=== PATIENT | female | born 1965 | race Caucasian/White ===

== ENCOUNTER 2019-03-01 13:54 | Emergency (ER) | payer SELFPAY ==
[2019-03-01] MEDS ORDERED: ALBUTEROL 2.5 MG/3 ML NEB SOL ONE (14:29)
[2019-03-01] MEDS ORDERED: IPRATROPIUM BROM 0.5MG/2.5ML ONE (14:29)
[2019-03-01] MEDS ORDERED: Magnesium Sulfate 2gm IVPB 2 G/50 ML BAG IV ONE (14:29)
[2019-03-01] MEDS ORDERED: NA CHLORIDE 0.9% 1,000 ML ONE (14:29)
[2019-03-01] MEDS ORDERED: METHYLPREDNISOLONE 125 MG INJ ONE (14:44)
[2019-03-01 14:49] LABS: Absolute Lymphocytes (CBC) 0.9 K/uL (0.7-4.9); Basophils % 0.2 % (0-1.3); Hematocrit 38.6 % (36.0-45.0); Lymphocytes % 23.9 % (15.3-44.8); MPV 9.5 fL (7.6-11.3); RBC Red Blood Cell Count 4.44 M/uL (3.86-4.86)
--- NOTE | 2019-03-01 15:20 | RAD REPORT ---
EXAM DESCRIPTION: RAD - Chest Pa And Lat (2 Views) - 03/01/2019 3:13 pm CLINICAL HISTORY: Dyspnea, persistent cough COMPARISON: None. TECHNIQUE: PA and lateral views of the chest were obtained. FINDINGS: The lungs are clear. Lung markings are not outside of normal range. Heart size is normal and central vasculature is within normal limits. No pleural effusion or pneumothorax seen. No acute bony finding noted. No aortic abnormality. IMPRESSION: No acute cardiopulmonary process.
--- NOTE | 2019-03-01 15:45 | EDPHYS ---
Physician Documentation [facility] Name: Nadia Watson Age: 53 yrs Sex: Female : 1965 Arrival Date: 03/01/2019 Time: 14:01 Bed 18 Private MD: Unknown, Unknown ED Physician Oscar Cid HPI: 03/01 15:27 This 53 yrs old Female presents to ER via Wheelchair with complaints of kb Breathing Difficulty. 15:27 The patient has shortness of breath at rest. Onset: The symptoms/episode began/occurred kb 1 week(s) ago. Duration: The symptoms are continuous. The patient's shortness of breath is aggravated by nothing, is alleviated by nothing. Associated signs and symptoms: Pertinent positives: non-productive cough. Severity of symptoms: At their worst the symptoms were moderate in the emergency department the symptoms are unchanged. The patient has not experienced similar symptoms in the past. The patient has not recently seen a physician. Pt reports she has been sick for about a week with cough, congestion and shortness of breath. [place] the beach today to sweat it out and the shortness of breath got worse. Reports she smokes, but has never been diagnosed with asthma or COPD. Historical: - Allergies: 14:00 No Known Allergies; la1 - Home Meds: 14:00 None [Active]; la1 - PMHx: 14:00 None; la1 - PSHx: 14:00 Hysterectomy; Appendectomy; la1 - Immunization history:: Adult Immunizations up to date. - Social history:: Smoking status: Patient uses tobacco products, denies chronic smoking, but will smoke occasionally. - Ebola Screening: : No symptoms or risks identified at this time. ROS: 15:26 Constitutional: Negative for fever, chills, and weight loss, Neck: Negative for injury, kb pain, and swelling, Cardiovascular: Negative for chest pain, palpitations, and edema, Abdomen/GI: Negative for abdominal pain, nausea, vomiting, diarrhea, and constipation, Back: Negative for injury and pain, : Negative for injury, bleeding, discharge, and swelling, MS/Extremity: Negative for injury and deformity, Skin: Negative for injury, rash, and discoloration, Neuro: Negative for headache, weakness, numbness, tingling, and seizure. 15:26 Respiratory: Positive for dyspnea on exertion, shortness of breath, wheezing. Exam: 15:27 Constitutional: This is a well developed, well nourished patient who is awake, alert, kb and in no acute distress. Head/Face: Normocephalic, atraumatic. ENT: Nares patent. No nasal discharge, no septal abnormalities noted. Tympanic membranes are normal and external auditory canals are clear. Oropharynx with no redness, swelling, or masses, exudates, or evidence of obstruction, uvula midline. Mucous membranes moist. Neck: Trachea midline, no thyromegaly or masses palpated, and no cervical lymphadenopathy. Supple, full range of motion without nuchal rigidity, or vertebral point tenderness. No Meningismus. Chest/axilla: Normal chest wall appearance and motion. Nontender with no deformity. No lesions are appreciated. Cardiovascular: Regular rate and rhythm with a normal S1 and S2. No gallops, murmurs, or rubs. Normal PMI, no JVD. No pulse deficits. Abdomen/GI: Soft, non-tender, with normal bowel sounds. No distension or tympany. No guarding or rebound. No evidence of tenderness throughout. Back: No spinal tenderness. No costovertebral tenderness. Full range of motion. Skin: Warm, dry with normal turgor. Normal color with no rashes, no lesions, and no evidence of cellulitis. MS/ Extremity: Pulses equal, no cyanosis. Neurovascular intact. Full, normal range of motion. Neuro: Awake and alert, GCS 15, oriented to person, place, time, and situation. Cranial nerves II-XII grossly intact. Motor strength 5/5 in all extremities. Sensory grossly intact. Cerebellar exam normal. Normal gait. 15:27 Respiratory: mild respiratory distress is noted, Respirations: labored breathing, Breath sounds: wheezing: inspiratory expiratory that is moderate, is heard diffusely. Vital Signs: 14:01 BP 137 / 84; Pulse 115; Resp 20; Temp 98.1(O); Pulse Ox 94% on R/A; Weight 95.25 kg; la1 Height 5 ft. 7 in. (170.18 cm); 15:00 BP 127 / 88; Pulse 110; Resp 24; Pulse Ox 100% on R/A; Pain 0/10; em 16:11 BP 146 / 73; Pulse 93; Resp 20; Pulse Ox 96% on R/A; Pain 0/10; em 14:01 Body Mass Index 32.89 (95.25 kg, 170.18 cm) la1 MDM: 14:08 Patient medically screened. kb 15:26 Data reviewed: vital signs, nurses notes. Data interpreted: Pulse oximetry: on room air kb is 100 %. Interpretation: normal. 15:43 Counseling: I had a detailed discussion with the patient and/or guardian regarding: the kb historical points, exam findings, and any diagnostic results supporting the discharge/admit diagnosis, lab results, radiology results, the need for outpatient follow up, a family practitioner, to return to the emergency department if symptoms worsen or persist or if there are any questions or concerns that arise at home. Response to treatment: the patient's symptoms have markedly improved after treatment. 15:44 ED course: antibiotics given because pt smokes cigarettes. kb 03/01 14:19 Order name: CBC with Diff; Complete Time: 14:56 kb 03/01 14:19 Order name: Basic Metabolic Panel; Complete Time: 15:21 kb 03/01 14:07 Order name: Chest Pa And Lat (2 Views) XRAY; Complete Time: 15:21 kb 03/01 14:19 Order name: IV Start; Complete Time: 14:41 kb Administered Medications: 14:33 Drug: DuoNeb (3:1) (2.5 mg - 0.5 mg) 3 ml Route: Nebulizer; em 15:09 Follow up: Response: No adverse reaction; Marked relief of symptoms; Wheezing diminishedem 14:49 Drug: Magnesium Sulfate 2 grams Route: IVPB; Infused Over: 2 hrs; Site: right em antecubital; 16:10 Follow up: Response: No adverse reaction; IV Status: Completed infusion; IV Intake: em 100ml 14:49 Drug: NS 0.9% 1000 ml Route: IV; Rate: 1000 ml; Site: right antecubital; em 16:11 Follow up: IV Status: Completed infusion; IV Intake: 1000ml em 14:51 Drug: SOLU-Medrol 125 mg Route: IVP; Site: right antecubital; la1 15:10 Follow up: Response: No adverse reaction em 16:11 Drug: Zithromax 500 mg Route: PO; em 16:14 Follow up: Response: Medication administered at discharge. em Disposition: 08/12 10:27 Co-signature as Attending Physician, Oscar Cid MD I agree with the assessment and farshad plan of care. Disposition: 03/01/19 15:44 Discharged to Home. Impression: Bronchitis, not specified as acute or chronic. - Condition is Stable. - Discharge Instructions: Acute Bronchitis, [id number]. - Prescriptions for Prednisone 20 mg Oral Tablet - take 1 tablet by ORAL route once daily for 5 days; 5 tablet. Albuterol Sulfate 90 mcg/actuation - inhale 1-2 puff by INHALATION route every 4-6 hours; 1 Inhaler. Zithromax 500 mg Oral Tablet - take 1 tablet by ORAL route once daily for 5 days; 5 tablet. - Medication Reconciliation Form, Thank You Letter, Antibiotic Education, Prescription Opioid Use form. - Follow up: Emergency Department; When: As needed; Reason: Worsening of condition. Follow up: Private Physician; When: 2 - 3 days; Reason: Recheck today's complaints, Continuance of care, Re-evaluation by your physician. Signatures: Dispatcher [employer] Maggy Jackman, SHRINK PIT OPERATOR-C SHRINK PIT OPERATOR-Oscar Jenkins MD MD cha Munoz, Edgar, HOCKEY SCOUT HOCKEY SCOUT em Bola Miller, RN RN la1 Corrections: (The following items were deleted from the chart) 03/01 16:16 15:44 03/01/2019 15:44 Discharged to Home. Impression: Bronchitis, not specified as em acute or chronic. Condition is Stable. Forms are Medication Reconciliation Form, Thank You Letter, Antibiotic Education, Prescription Opioid Use. Follow up: Emergency Department; When: As needed; Reason: Worsening of condition. Follow up: Private Physician; When: 2 - 3 days; Reason: Recheck today's complaints, Continuance of care, Re-evaluation by your physician. kb
--- NOTE | 2019-03-01 15:45 | ER ---
Nurse's Notes [facility] Name: Nadia Watson Age: 53 yrs Sex: Female : 1965 Arrival Date: 03/01/2019 Time: 14:01 Bed 18 Private MD: Unknown, Unknown Diagnosis: Bronchitis, not specified as acute or chronic Presentation: 03/01 13:59 Presenting complaint: Patient states: Productive cough for about a week, feel SOB. la1 Denies ill contacts. Transition of care: patient was not received from another setting of care. Onset of symptoms was March 01, 2019. Risk Assessment: Do you want to hurt yourself or someone else? Patient reports no desire to harm self or others. Initial Sepsis Screen: Does the patient meet any 2 criteria? HR > 90 bpm. Does the patient have a suspected source of infection? Yes: Productive cough/pneumonia. Care prior to arrival: None. 13:59 Method Of Arrival: Wheelchair la1 13:59 Acuity: KIM 3 la1 Historical: - Allergies: 14:00 No Known Allergies; la1 - Home Meds: 14:00 None [Active]; la1 - PMHx: 14:00 None; la1 - PSHx: 14:00 Hysterectomy; Appendectomy; la1 - Immunization history:: Adult Immunizations up to date. - Social history:: Smoking status: Patient uses tobacco products, denies chronic smoking, but will smoke occasionally. - Ebola Screening: : No symptoms or risks identified at this time. Screenin:30 Abuse screen: Denies threats or abuse. Nutritional screening: No deficits noted. em Tuberculosis screening: No symptoms or risk factors identified. Fall Risk None identified. Assessment: 14:30 General: Appears in no apparent distress. uncomfortable, Behavior is calm, cooperative, em Denies fever. Pain: Denies pain. Neuro: Level of Consciousness is awake, alert, obeys commands, Oriented to person, place, time, situation. Cardiovascular: Denies chest pain, Capillary refill < 3 seconds Patient's skin is warm and dry. Rhythm is regular. Respiratory: Reports shortness of breath on exertion cough that is productive, Airway is patent Respiratory effort is even, labored, Respiratory pattern is regular, symmetrical, Breath sounds with wheezes bilaterally. Onset: The symptoms/episode began/occurred 1 week. GI: Patient currently denies nausea, vomiting. Derm: Skin is intact, is healthy with good turgor, Skin is pink, warm \T\ dry. Musculoskeletal: Capillary refill < 3 seconds, Range of motion: intact in all extremities. 15:39 Reassessment: Patient appears in no apparent distress at this time. Patient and/or em family updated on plan of care and expected duration. Pain level reassessed. Patient is alert, oriented x 3, equal unlabored respirations, skin warm/dry/pink. Patient denies pain at this time. Patient states feeling better. Patient states symptoms have improved. 16:16 Reassessment: Patient appears in no apparent distress at this time. Patient and/or em family updated on plan of care and expected duration. Pain level reassessed. Patient is alert, oriented x 3, equal unlabored respirations, skin warm/dry/pink. discharged and ambulated with steady gait, reports feeling better. Vital Signs: 14:01 BP 137 / 84; Pulse 115; Resp 20; Temp 98.1(O); Pulse Ox 94% on R/A; Weight 95.25 kg; la1 Height 5 ft. 7 in. (170.18 cm); 15:00 BP 127 / 88; Pulse 110; Resp 24; Pulse Ox 100% on R/A; Pain 0/10; em 16:11 BP 146 / 73; Pulse 93; Resp 20; Pulse Ox 96% on R/A; Pain 0/10; em 14:01 Body Mass Index 32.89 (95.25 kg, 170.18 cm) la1 ED Course: 14:00 Triage completed. la1 14:00 Arm band placed on right wrist. la1 14:01 Patient arrived in ED. ag5 14:01 Unknown, Unknown is Private Physician. ag5 14:08 Maggy Smart FNP-C is [facility]. kb 14:08 Oscar Cid MD is Attending Physician. kb 14:21 Abraham Zhao LVN is Primary Nurse. em 14:30 Patient has correct armband on for positive identification. Placed in gown. Bed in low em position. Call light in reach. Pulse ox on. NIBP on. 14:30 Initial lab(s) drawn, by me, sent to lab. Inserted saline lock: 20 gauge in right em antecubital area, using aseptic technique. Blood collected. 15:15 Chest Pa And Lat (2 Views) XRAY In Process Unspecified. EDMS 16:15 No provider procedures requiring assistance completed. IV discontinued, intact, em bleeding controlled, No redness/swelling at site. Pressure dressing applied. Administered Medications: 14:33 Drug: DuoNeb (3:1) (2.5 mg - 0.5 mg) 3 ml Route: Nebulizer; em 15:09 Follow up: Response: No adverse reaction; Marked relief of symptoms; Wheezing diminishedem 14:49 Drug: Magnesium Sulfate 2 grams Route: IVPB; Infused Over: 2 hrs; Site: right em antecubital; 16:10 Follow up: Response: No adverse reaction; IV Status: Completed infusion; IV Intake: em 100ml 14:49 Drug: NS 0.9% 1000 ml Route: IV; Rate: 1000 ml; Site: right antecubital; em 16:11 Follow up: IV Status: Completed infusion; IV Intake: 1000ml em 14:51 Drug: SOLU-Medrol 125 mg Route: IVP; Site: right antecubital; la1 15:10 Follow up: Response: No adverse reaction em 16:11 Drug: Zithromax 500 mg Route: PO; em 16:14 Follow up: Response: Medication administered at discharge. em Intake: 16:10 IV: 100ml; Total: 100ml. em 16:11 IV: 1000ml; Total: 1100ml. em Outcome: 15:44 Discharge ordered by . kb 16:15 Discharged to home ambulatory. em 16:15 Condition: good 16:15 Discharge instructions given to patient, Instructed on discharge instructions, follow up and referral plans. medication usage, Demonstrated understanding of instructions, follow-up care, medications, Prescriptions given X 3. 16:16 Patient left the ED. em Signatures: Dispatcher [employer] EDMaggy Son, JAIL GUARD-C JAIL GUARD-Bullb Abraham Zhao, CRM CONSULTANT CRM CONSULTANT em Bola Miller, RN RN la1 Kirit Cotton ag5
[2019-03-01] MEDS ORDERED: AZITHROMYCIN 250 MG TAB ONE (15:52)
== END 2019-03-01 16:16 | disposition home or self-care (01) ==
LOC: ER 13:54
DX: J40 Bronchitis, not specified as acute or chronic (principal); F17.210 Nicotine dependence, cigarettes, uncomplicated
CPT/HCPCS: 36415; 71046; 80048; 85025; 94640; 96365; 96375; 99284; J2930; J3475; J7030

== ENCOUNTER 2019-09-21 11:36 | Emergency (ER) | payer OTHER ==
--- NOTE | 2019-09-21 13:05 | RAD REPORT ---
EXAM DESCRIPTION: RAD - Ankle Right 3 View - 09/21/2019 12:57 pm CLINICAL HISTORY: Pain;Smash injury, twisting injury, ankle pain COMPARISON: No comparisons FINDINGS: No fracture, dislocation or periosteal reaction. No joint effusion seen. No joint space na rrowing. No significant soft tissue swelling changes are present. There is mildly prominent soft tiss ues along the anterior ankle and dorsum of the foot with the baseline for the patient is not known. P atient does have a small to moderate size plantar spur. IMPRESSION: No fracture or acute bone finding. Soft tissues along the anterior ankle and dorsum of the foot are mildly prominent with the baseline u nknown. Plantar spur.
--- NOTE | 2019-09-21 13:14 | ER ---
Nurse's Notes [facility] Name: Nadia Watson Age: 54 yrs Sex: Female : 1965 Arrival Date: 09/21/2019 Time: 11:40 Bed 11 Private MD: Diagnosis: Sprain of ankle;Plantar heel spur Presentation: 09/20 11:58 Chief complaint: Patient states: R ankle/foot pain that began last night after falling ss last night after missing a step. Coronavirus screen: The patient has NOT traveled to [place] in the past 14 days. Proceed with normal triage procedures. Ebola Screen: Patient denies exposure to infectious person. Patient denies travel to an Ebola-affected area in the 21 days before illness onset. Initial Sepsis Screen: Does the patient meet any 2 criteria? No. Patient's initial sepsis screen is negative. Does the patient have a suspected source of infection? No. Patient's initial sepsis screen is negative. Risk Assessment: Do you want to hurt yourself or someone else? Patient reports no desire to harm self or others. 11:58 Method Of Arrival: Ambulatory ss 11:58 Acuity: KIM 4 ss Historical: - Allergies: 12:01 PENICILLINS; ss - PSHx: 12:01 Hysterectomy; Appendectomy; ss - Immunization history:: Adult Immunizations up to date. - Social history:: Smoking status: Patient denies any tobacco usage or history of. Screenin:35 Abuse screen: Denies threats or abuse. Nutritional screening: No deficits noted. ss Tuberculosis screening: Never had TB. Fall Risk None identified. Assessment: 12:35 General: Appears in no apparent distress. comfortable, Behavior is calm, cooperative, ss Denies fever, feeling ill, fatigue, chills. Pain: Complains of pain in dorsum of right foot and right medial malleolus and medial aspect of right heel and right lateral malleolus Pain currently is 10 out of 10 on a pain scale. Quality of pain is described as aching, tender. Neuro: Level of Consciousness is awake, alert, obeys commands. Cardiovascular: Capillary refill < 3 seconds is brisk in bilateral fingers. Respiratory: Airway is patent Respiratory effort is even, unlabored, Respiratory pattern is regular, symmetrical. GI: Patient currently denies diarrhea, nausea, vomiting. : No signs and/or symptoms were reported regarding the genitourinary system. EENT: Nares are clear Oral mucosa is moist. Derm: Skin is intact, is healthy with good turgor, Skin is dry, Skin is pink, warm \T\ dry. normal. Musculoskeletal: Circulation, motion, and sensation intact. Capillary refill < 3 seconds, is brisk, in bilateral fingers. Range of motion: intact in all extremities, Swelling present in right lateral malleolus and dorsum of right foot. 13:47 Reassessment: Patient appears in no apparent distress at this time. Patient and/or ss family updated on plan of care and expected duration. Pain level reassessed. Patient is alert, oriented x 3, equal unlabored respirations, skin warm/dry/pink. Vital Signs: 11:58 BP 140 / 92; Pulse 100; Resp 18; Temp 98.8(TE); Pulse Ox 97% on R/A; Weight 99.79 kg; ss Height 5 ft. 7 in. (170.18 cm); Pain 10/10; 11:58 Body Mass Index 34.46 (99.79 kg, 170.18 cm) ED Course: 11:40 Patient arrived in ED. mr 12:01 Triage completed. ss 12:01 Arm band placed on left wrist. ss 12:30 Rosa Noriega [facility]-C is [facility]. snw 12:30 Oscar Cid MD is Attending Physician. snw 12:35 Patient has correct armband on for positive identification. Bed in low position. Call ss light in reach. 13:08 Ankle Right 3 View XRAY In Process Unspecified. EDMS 13:45 Alpa Calderón, IDALIA is Primary Nurse. ss 13:45 No provider procedures requiring assistance completed. Patient did not have IV access ss during this emergency room visit. 3D boot applied to right foot. Administered Medications: 13:35 Drug: Motrin 600 mg Route: PO; ss 13:45 Follow up: Response: Medication administered at discharge. Outcome: 13:13 Discharge ordered by . snw 13:45 Discharged to home ambulatory, with family. ss 13:45 Condition: good 13:45 Discharge instructions given to patient, family, Instructed on discharge instructions, follow up and referral plans. medication usage, Demonstrated understanding of instructions, follow-up care, medications, Prescriptions given X 1. 13:47 Patient left the ED. ss Signatures: Dispatcher [employer] EDMS Rosa Noriega, MARY KAY-C PANEL FLOW MACHINE OPERATOR-Csnw Lashanda Vu mr Alpa Calderón, RN RN ss Corrections: (The following items were deleted from the chart) 16:21 12:35 Musculoskeletal: Circulation, motion, and sensation intact. Capillary refill < 3 ss seconds, is brisk, in bilateral fingers. Range of motion: intact in all extremities, Swelling absent ss
--- NOTE | 2019-09-21 13:14 | EDPHYS ---
Physician Documentation [facility] Name: Nadia Watson Age: 54 yrs Sex: Female : 1965 Arrival Date: 09/21/2019 Time: 11:40 Bed 11 Private MD: ED Physician Oscar Cid HPI: 09/20 13:15 This 54 yrs old Female presents to ER via Ambulatory with complaints of Fall snw Injury, Foot Injury. 13:15 Details of fall: The patient fell from an upright position, while walking. Onset: The snw symptoms/episode began/occurred suddenly, yesterday, and became persistent. Associated injuries: The patient sustained right lateral malleolus and medial aspect of right heel. Severity of symptoms: At their worst the symptoms were moderate. It is unknown whether or not the patient has had similar symptoms in the past. It is unknown whether or not the patient has recently seen a physician. Historical: - Allergies: 12:01 PENICILLINS; ss - PSHx: 12:01 Hysterectomy; Appendectomy; ss - Immunization history:: Adult Immunizations up to date. - Social history:: Smoking status: Patient denies any tobacco usage or history of. ROS: 13:48 Constitutional: Negative for fever, chills, and weight loss, Eyes: Negative for injury, snw pain, redness, and discharge, ENT: Negative for injury, pain, and discharge, Neck: Negative for injury, pain, and swelling, Cardiovascular: Negative for chest pain, palpitations, and edema, Respiratory: Negative for shortness of breath, cough, wheezing, and pleuritic chest pain, Abdomen/GI: Negative for abdominal pain, nausea, vomiting, diarrhea, and constipation, Back: Negative for injury and pain, : Negative for injury, bleeding, discharge, and swelling, Skin: Negative for injury, rash, and discoloration, Neuro: Negative for headache, weakness, numbness, tingling, and seizure, Psych: Negative for depression, anxiety, suicide ideation, homicidal ideation, and hallucinations, Allergy/Immunology: Negative for hives, rash, and allergies. 13:48 MS/extremity: Positive for injury or acute deformity, pain, swelling, tenderness, of the right lateral malleolus, right medial malleolus, medial aspect of right heel and dorsum of right foot. Exam: 13:47 Constitutional: This is a well developed, well nourished patient who is awake, alert, snw and in no acute distress. Head/Face: Normocephalic, atraumatic. Eyes: Pupils equal round and reactive to light, extra-ocular motions intact. Lids and lashes normal. Conjunctiva and sclera are non-icteric and not injected. Cornea within normal limits. Periorbital areas with no swelling, redness, or edema. ENT: Nares patent. No nasal discharge, no septal abnormalities noted. Tympanic membranes are normal and external auditory canals are clear. Oropharynx with no redness, swelling, or masses, exudates, or evidence of obstruction, uvula midline. Mucous membranes moist. Neck: Trachea midline, no thyromegaly or masses palpated, and no cervical lymphadenopathy. Supple, full range of motion without nuchal rigidity, or vertebral point tenderness. No Meningismus. Chest/axilla: Normal chest wall appearance and motion. Nontender with no deformity. No lesions are appreciated. Cardiovascular: Regular rate and rhythm with a normal S1 and S2. No gallops, murmurs, or rubs. Normal PMI, no JVD. No pulse deficits. Respiratory: Lungs have equal breath sounds bilaterally, clear to auscultation and percussion. No rales, rhonchi or wheezes noted. No increased work of breathing, no retractions or nasal flaring. Abdomen/GI: Soft, non-tender, with normal bowel sounds. No distension or tympany. No guarding or rebound. No evidence of tenderness throughout. Back: No spinal tenderness. No costovertebral tenderness. Full range of motion. Skin: Warm, dry with normal turgor. Normal color with no rashes, no lesions, and no evidence of cellulitis. Neuro: Awake and alert, GCS 15, oriented to person, place, time, and situation. Cranial nerves II-XII grossly intact. Motor strength 5/5 in all extremities. Sensory grossly intact. Cerebellar exam normal. Normal gait. Psych: Awake, alert, with orientation to person, place and time. Behavior, mood, and affect are within normal limits. 13:47 Musculoskeletal/extremity: Extremities: grossly normal except: noted in the right foot and medial aspect of right heel: swelling, tenderness, ROM: intact in all extremities, Circulation is intact in all extremities. Sensation intact. Vital Signs: 11:58 BP 140 / 92; Pulse 100; Resp 18; Temp 98.8(TE); Pulse Ox 97% on R/A; Weight 99.79 kg; ss Height 5 ft. 7 in. (170.18 cm); Pain 10/10; 11:58 Body Mass Index 34.46 (99.79 kg, 170.18 cm) MDM: 12:44 Patient medically screened. snw 13:14 Data reviewed: vital signs, nurses notes. Data interpreted: Pulse oximetry: on room air snw is 97 %. Interpretation: normal. Counseling: I had a detailed discussion with the patient and/or guardian regarding: the historical points, exam findings, and any diagnostic results supporting the discharge/admit diagnosis, radiology results, the need for outpatient follow up, to return to the emergency department if symptoms worsen or persist or if there are any questions or concerns that arise at home. Special discussion: I have referred the patient to see his PCP for further evaluation of high blood pressure. Based on the history and exam findings, there is no indication for further emergent testing or inpatient evaluation. I discussed with the patient/guardian the need to see the orthopedic surgeon for further evaluation of the symptoms. 09/20 12:22 Order name: Ankle Right 3 View XRAY; Complete Time: 13:12 snw 09/20 13:12 Order name: Walking boot; Complete Time: 13:45 snw Administered Medications: 13:35 Drug: Motrin 600 mg Route: PO; ss 13:45 Follow up: Response: Medication administered at discharge. Disposition: 14:51 Co-signature as Attending Physician, Oscar Cid MD I agree with the assessment and farshad plan of care. Disposition: 09/21/19 13:13 Discharged to Home. Impression: Sprain of ankle, Plantar heel spur. - Condition is Stable. - Discharge Instructions: Ankle Sprain, Heel Spur, Hypertension, Ankle Pain, Cryotherapy, Walking Boot. - Prescriptions for Diclofenac Sodium 75 mg Oral Tablet Sustained Release - take 1 tablet by ORAL route 2 times per day; 30 tablet. - Work release form, Medication Reconciliation Form, Thank You Letter, Antibiotic Education, Prescription Opioid Use form. - Follow up: Emergency Department; When: As needed; Reason: Worsening of condition. Follow up: Private Physician; When: 2 - 3 days; Reason: Recheck today's complaints, Continuance of care, Re-evaluation by your physician. Signatures: Dispatcher [employer] Oscar Arteaga MD MD cha Therrien, Shelly, WASTE TREATMENT OPERATOR-C WASTE TREATMENT OPERATOR-Woow Alpa Calderón, IDALIA RN ss Corrections: (The following items were deleted from the chart) 13:47 13:13 09/21/2019 13:13 Discharged to Home. Impression: Sprain of ankle; Plantar heel ss spur. Condition is Stable. Forms are Medication Reconciliation Form, Thank You Letter, Antibiotic Education, Prescription Opioid Use. Follow up: Emergency Department; When: As needed; Reason: Worsening of condition. Follow up: Private Physician; When: 2 - 3 days; Reason: Recheck today's complaints, Continuance of care, Re-evaluation by your physician. snw
[2019-09-21] MEDS ORDERED: IBUPROFEN 200 MG TAB PO ONE (13:38)
[2019-09-21 13:59] VITALS: BP 140/92; TEMP 98.8; O2SAT 97
== END 2019-09-21 13:47 | disposition home or self-care (01) ==
LOC: ER 11:36
DX: S93.401A Sprain of unspecified ligament of right ankle, initial encounter (principal); M77.30 Calcaneal spur, unspecified foot; W01.0XXA Fall on same level from slipping, tripping and stumbling without subsequent striking against object, initial encounter; Y93.9 Activity, unspecified; Y92.9 Unspecified place or not applicable; Z88.0 Allergy status to penicillin
CPT/HCPCS: 99284